=== PATIENT | male | born 1945 | race Caucasian/White ===

== ENCOUNTER → 2016-08-21 | Outpatient (CLI) | payer OTHER ==
--- NOTE | 2016-08-21 11:33 | RAD ---
Indication chronic pain. AP oblique and lateral views of both hands were obtained. Views of the right hand show no acute finding. There is some radiocarpal narrowing. No definite erosions are seen. Advanced degenerative changes are not apparent particularly given the patient's age. Views of the left hand demonstrate similar findings. An acute finding is not seen. IMPRESSION: Relatively mild degenerative changes involving the hands.
== END | disposition home or self-care (01) ==
LOC: DXRADRC 11:10
PROVIDERS: ATTEND Plastic Surgery
DX: M79.641 Pain in right hand (principal); M79.642 Pain in left hand
CPT/HCPCS: 73130